=== PATIENT | male | born 1930 | race Caucasian/White ===

== ENCOUNTER 2016-05-06 22:06 | Emergency (ER) | payer MEDICARE, OTHER ==
[~2016-05-06 22:06] MED LIST: ASPIR-TRIN325 MG PO; CELEXA 20MG TAB20 MG PO; DONEPEZIL HCL OD5 MG PO; DULCOLAX10 MG PR; GLUCOPHAGE 500500 MG PO; GLUCOTROL5 MG PO; LISINOPRIL5 MG PO; LOPERAMIDE2 MG PO; MILK OF MAGNESI30 ML PO; MIRALAX PACK 171 PKT PO; NAMENDA10 MG PO; NATURAL FIBER PO; TYLENOL 500 MG500 MG PO; VENTOLIN HFA 66.7 GM INH; ZOFRAN4 MG PO
[2016-05-06 23:47] LABS: HEMOGLOBIN 13.1 gm/dl (14.0-17.5); RED BLOOD COUNT 3.73 M/UL (4.20-5.50); WHITE BLOOD COUNT 8.5 K/UL (4.5-11.0)
[2016-05-07 01:47] LABS: BUN/CREATININE RATIO 16 (0-10)
== END 2016-05-07 04:20 | disposition home or self-care (01) ==
LOC: ER1 22:06
PROVIDERS: Physician Assistant
DX: R09.02 Hypoxemia (principal); F03.90 Unspecified dementia, unspecified severity, without behavioral disturbance, psychotic disturbance, mood disturbance, and anxiety; E11.9 Type 2 diabetes mellitus without complications; I10 Essential (primary) hypertension
CPT/HCPCS: 36415; 36600; 70450; 71010; 80053; 81001; 82550; 82553; 82803; 83605; 83690; 83874; 84484; 85025; 87086; 93005; 96360; 99285; J7050; Q9962

== ENCOUNTER 2016-06-02 23:03 | Emergency (ER) | payer MEDICARE, OTHER | END 2016-06-03 06:42 | LOC: ER1 23:03 | DX: M25.552 Pain in left hip (principal); W19.XXXA Unspecified fall, initial encounter | CPT/HCPCS: 72192; 73700; 93005; 99284 ==